=== PATIENT | female | born 1980 | race Caucasian/White ===

== ENCOUNTER → 2022-07-10 13:11 | Outpatient (CLI) | payer OTHER, SELFPAY ==
--- NOTE | 2022-07-10 13:25 | XR_ITS ---
FINAL REPORT CLINICAL HISTORY: PAIN-- FINDINGS: LEFT FOOT Three weight-bearing views of the left foot demonstrate no acute fracture or dislocation. The visualized joint spaces are normally aligned. The soft tissues are unremarkable. IMPRESSION: No acute bony abnormality. Reviewed, Interpreted and Dictated by Thomas Kumar MD Transcribed by Brittny Gauthier Authenticated and [facility]
--- NOTE | 2022-07-10 13:25 | XR_ITS ---
FINAL REPORT CLINICAL HISTORY: PAIN FINDINGS: RIGHT FOOT Three seated/simulated weight-bearing views of the right foot demonstrate no acute fracture or dislocation. The visualized joint spaces are intact. The soft tissues are unremarkable. IMPRESSION: No acute bony abnormality. Reviewed, Interpreted and Dictated by Thomas Kumar MD Transcribed by Brittny Gauthier Authenticated and [facility]
== END ==
PROVIDERS: PCP Family Medicine; Visit Provider Podiatrist
DX: M79.672 Pain in left foot (principal); M79.671 Pain in right foot
CPT/HCPCS: 73630

== ENCOUNTER → 2022-08-03 09:46 | Outpatient (CLI) | payer OTHER, SELFPAY ==
--- NOTE | 2022-08-03 09:53 | ECG_ITS ---
APPROVED REPORT Exam: Resting ECG HR:107 bpm ECG Measurements Heart Rate 107 AXES NE 126 P 83 QRSd 74 QRS 86 QT 309 T 52 QTc 372 Conclusion SINUS TACHYCARDIA POSSIBLE RIGHT ATRIAL ENLARGEMENT [0.25mV P-WAVE] NONSPECIFIC ST & T-WAVE ABNORMALITY ABNORMAL RHYTHM ECG UNCONFIRMED REPORT Electronically signed by : Dionisio Palumbo MD 08/03/2022 19:23:51
--- NOTE | 2022-08-03 10:04 | XR_ITS ---
FINAL REPORT CLINICAL HISTORY: pre op, SINUS DRAINAGE FINDINGS: Two views of the chest were obtained. The heart size and pulmonary vascularity are within normal limits. The mediastinum is normal. No acute pulmonary abnormality is identified. There is no pneumothorax. The bony thorax is intact. IMPRESSION: No active cardiopulmonary disease. Reviewed, Interpreted and Dictated by Hardik Javed III, MD Transcribed by Sidra Patricia Authenticated and [facility]
[2022-08-03 10:38] LABS: Basophils # 0.1 K/mm3 (0-0.2); Basophils % 1.1 % (0.1-2.0); Eosinophils # 0.3 K/mm3 (0.0-0.4); Eosinophils % 2.5 % (0.1-12.0); Lymphocytes # 2.3 K/mm3 (0.7-4.5); Lymphocytes % 23.5 % (10-50); Mean Corpuscular HGB Conc 32.5 g/dL (31.8-35.4); Mean Corpuscular Hemoglobin 31.3 pg (27.0-31.2); Mean Corpuscular Volume 96.2 fl (81-99); Mean Platelet Volume 7.4 fl (7.4-10.4); Monocytes # 0.6 K/mm3 (0.1-1.0); Monocytes % 6.2 % (1.7-9.3); Neutrophils # 6.6 K/mm3 (1.8-7.8); Neutrophils % 66.7 % (37.0-80.0); Platelet Count 372 K/mm3 (142-424); Red Blood Count 4.47 M/mm3 (4.20-5.40); Red Cell Distribution Width 13.7 % (11.5-17.5); White Blood Count 9.9 K/mm3 (4.8-10.8)
[2022-08-03 11:12] LABS: Alanine Aminotransferase 21 U/L (12-78); Albumin Level 4.2 g/dl (3.5-5.0); Albumin/Globulin Ratio 1.6 (1.1-1.8); Alkaline Phosphatase 81 U/L (38-126); Anion Gap 15.1 mEq/L (5-15); Aspartate Amino Transferase 28 U/L (14-36); Bilirubin,Total 0.3 mg/dl (0.2-1.3); Blood Urea Nitrogen 12 mg/dl (7-17); Calcium 9.3 mg/dl (8.4-10.2); Carbon Dioxide 27 mmol/L (22.0-30.0); Chloride 101 mmol/L (98-107); Estimated Glomerular Filt Rate 78 ml/min (>60); GFR (African American) 95 ML/MIN (>60); Globulin 2.7 g/dL (1.3-3.2); Glucose 94 mg/dl (74-100); Potassium 4.1 mmoL/L (3.5-5.1); Sodium 139 mmol/L (136-145); Total Protein,Serum 6.9 g/dl (6.3-8.2)
== END ==
PROVIDERS: PCP Family Medicine; Visit Provider Podiatrist
DX: Z01.818 Encounter for other preprocedural examination (principal); M79.671 Pain in right foot
CPT/HCPCS: 36415; 71046; 80053; 85025; 93005

== ENCOUNTER → 2022-08-21 09:24 | Outpatient (CLI) | payer OTHER, SELFPAY | PROVIDERS: PCP Family Medicine; Visit Provider Podiatrist | DX: Z01.812 Encounter for preprocedural laboratory examination (principal); Z20.822 Contact with and (suspected) exposure to COVID-19 | CPT/HCPCS: C9803; U0003; U0005 ==

== ENCOUNTER 2022-08-23 06:04 | Day surgery (SDC) | payer OTHER, SELFPAY ==
[2022-08-21 10:33] VITALS: BMI 23.1
[2022-08-23] VITALS (12 sets, daily range): BP systolic 96–144; BP diastolic 43–76; PULSE 80–102; RESP 16–18; TEMP 36.5–43; O2SAT 95–100
[2022-08-23 07:00] LABS: Urine Pregnancy, HCG Qual. Negative (Negative)
--- NOTE | 2022-08-23 07:59 | XR_ITS ---
FINAL REPORT CLINICAL HISTORY: Post op bunion repair FINDINGS: RIGHT FOOT Three views of the right foot were obtained. A splint obscures most of the detail. There is no acute fracture or dislocation. There are postoperative changes in the region the head of the 1st metatarsal and the 1st proximal phalanx. The visualized joint spaces are normally aligned. The joint spaces are preserved. The soft tissues are unremarkable. IMPRESSION: Postoperative change as above. Reviewed, Interpreted and Dictated by Hardik Javed III, MD Transcribed by Marti Jhaveri Authenticated and . [facility]
--- NOTE | 2022-08-23 08:23 | EXP.ANES.CKL ---
[facility] Medical History Allergies History of gastroesophageal reflux (GERD) Rosacea Sinus headache Urinary tract infection Surgical History History of History of hand surgery Hx of tonsillectomy Family History Father Family history of heart disease Family history of skin cancer Grandmother Family history of breast cancer Grandmother Family history of breast cancer Social History Smoking Status: Never smoker alcohol intake: never substance use type: denies use current occupational status: unemployed Travel in the last 8 weeks: None [facility] Anesthesia Checklist Patient Identification Patient Identification: Arm Band Structural Data Admitted From: Home Planned Operative Procedure/s: Right 1st MPJ ORIF, Plantar Plate Repair Consent for Planned Operative Procedure(s) Verified: Yes Verified Documents: Surgical Consent and History and Physical NPO Status Verified Time NPO: 00:00 Additional verifications Anesthesia Reactions: No Hx Blood Transfusions: No Blood Transfusion Reaction: No Airway Assessment C-Spine Mobility Assessed: Yes TMJ Mobility Assessed: Yes Dentition: Good Dentition Neurological Assessment Level of Consciousness: Awake and Alert Anesthesia Plan Anesthesia Risk discussed: Yes Anesthesia Plan: Verified ASA Class: I Anesthesia Type: General w/block (Right Popliteal/Saphenous. Risks/benefits explained, pt verbalized understanding)
--- NOTE | 2022-08-23 09:43 | XR_ITS ---
FINAL REPORT CLINICAL HISTORY: BUNIONECTOMY,HAMMERTOE ORIF fluoro time .33 FINDINGS: FLUORO TIME PROCEDURE: Fluoroscopy in the operating room. Fluoroscopy time was provided by the radiology department for the clinical service. Two films were obtained. Fluoroscopy exposure time: 0.33 minutes IMPRESSION: See above Reviewed, Interpreted and Dictated by Hardik Javed III, MD Transcribed by Marti Jhaveri Authenticated and [facility]
--- NOTE | 2022-08-23 09:51 | SUR.OPER ---
0914-additional 1gm ancef administered per FLAKITO Maria, see record for details
--- NOTE | 2022-08-23 10:13 | EXP.ANES.I ---
[facility] Anesthesia Record Part I Anesthesia Record I Intake, IV Amount: 1,100 Estimated blood loss (mL): 10 Urine output (mL): 0 Blood Products used (#): none Blood Pressure: 96/43 SaO2: 97 Pulse Rate: 95 Respiratory Rate: 16 Temperature: 98.2 F Patient is:: Drowsy and Stable Stable to PACU at:: 10:10
--- NOTE | 2022-08-23 10:35 | EXP.OP.NOTE ---
Date of procedure: 08/23/22 Pre-op Diagnosis:: Right first MPJ subluxation Right plantar plate tear Sprain of collateral ligament great toe Traumatic bunion/acquired hallux valgus right foot CRPS Post-op Diagnosis:: Same Procedure performed:: Right 1st MPJ dislocation open treatment/repair (97168), MPJ capsulotomy (67163) with traumatic bunionectomy repair (silver with modified Friedman) Right plantar plate repair Right collateral ligament repair Soft tissue reconstruction angular toe deformity (97275) Open flexor tenotomy toe x2 (17852) Right foot synovectomy, flexor tenosynovectomy Application of graft Surgeon:: Edyta Dunbar DPM BAR MACHINE OPERATOR PRODUCTION:: Gavin Scanlon Anesthesia: GETA, regional (right popliteal nerve block) and local (0.25% marcaine plain-10cc) Estimated blood loss (mL): 10 Clinical Note:: Patient is a 42-year-old active female who had acute onset pain 04/17/2022.? She has had conservative care including RICE protocol, immobilization fracture boot, NWB with crutches/rolling knee scooter, oral steroids. She has also had modification of shoe gear, modification of activity, strapping, Darco/bunion sleeve, steroid injection and topical compounding nerve pain cream. After a long discussion with the patient in regards to the conservative versus surgical treatment for the 1st MPJ dislocation/subluxation with subsequent bunion and hammertoe deformity, the patient has elected to proceed with surgery because they have failed conservative treatment and continue to have pain and worsening symptoms affecting daily activities. The patient has been instructed on the planned procedure, all risk versus benefits of the procedure discussed.? These include but are not limited to: bleeding, infection, nerve and blood vessel damage, need for further surgery, recurrence of deformity, delay in healing of soft tissue or bone, failure of bones to heal, non-union, mal-union, failure of the implant, allergic reaction, foreign body reaction, prolonged edema, prolonged pain and recovery, permanent nerve symptoms, CRPS/RSD, DVT/PE and anesthetic complications. No guarantees were given. All questions fully answered. The patient verbalized understanding and agreed to proceed with surgery. Written consent obtained. Necessary labs, pre-op testing: CBC, CMP, CXR, EKG, covid. Medical clearance per PCP. Operative findings:: Right first MPJ subluxation. There was minimal arthritic changes to the first metatarsal head, no osteochondral defect. The first metatarsal was subluxed off the proximal phalanx. There was a partial tear noted at the intra sesamoidal ligament. There was a tear at the distal attachment of the medial collateral ligament. There was a tear of >75% of the plantar plate. The abductor hallucis was intact. The flexor tendon was intact with some synovitis and a small tear noted. Operative note:: On this date and time, the patient was deemed an appropriate surgical candidate. With informed consent signed, anesthesia performed regional popliteal nerve block. The patient was taken to the operating theater and positioned supine. General anesthesia was induced. Tourniquet was applied to the RIGHT mid-calf. The RIGHT lower extremity was prepped and draped in normal sterile fashion. IV Ancef 2 g given. Right first MPJ dislocation open treatment with MPJ capsulotomy and traumatic bunion repair: The tourniquet was inflated to 225 mmHg. Attention was directed to the plantar medial foot where a linear incision was mapped out over first metatarsophalangeal joint. Dissection was carried down in a layered fashion to the bone. Care was taken to preserve neurovascular structures. Saw was used to resect the dorsal medial eminence of the first metatarsal. A power rasp was used to smooth down the edges and there is no bony prominence. Area was flushed with copious amounts of normal saline. Soft tissue was evaluated, see operative findings. Right plantar plate repair, collateral ligament repair, soft ti
--- NOTE | 2022-08-23 10:40 | SUR.PHASEI ---
1036 called and gave detailed report to Quintin Valle RN 1040 transported via stretcher to post op. vital signs stable. denies pain. left in stable condition with Quintin Valle RN at bedside.
--- NOTE | 2022-08-23 10:56 | EXP.ANES.II ---
[facility] Anesthesia Record Part II Anesthesia Record Part II Discharge Time: 10:40 Destination: Surgical Day Care (OP Surgery) PACU nurse assessment reviewed?: Yes Patient Condition:: Good Anesthesia Complications:: None Swallowing reflex intact?: Yes Cyanosis?: No Blood Pressure: 123/76 Pulse Rate: 89 Temperature: 98.2 F Mental Status: Alert & Oriented Pain level:: 0 Nausea and/or vomitting:: None Intake, IV Amount: 0
== END 2022-08-23 11:16 | disposition home or self-care (01) ==
PROVIDERS: PCP Family Medicine; Visit Provider Podiatrist
PROC: (CPT 28645; principal; 2022-08-23 07:30)
DX: S93.142A Subluxation of metatarsophalangeal joint of left great toe, initial encounter (principal); G90.521 Complex regional pain syndrome I of right lower limb; S93.521A Sprain of metatarsophalangeal joint of right great toe, initial encounter; M21.611 Bunion of right foot; M20.11 Hallux valgus (acquired), right foot
CPT/HCPCS: 28645; 28292; 27695; 28230; 73620; 73630; 81025; 96374; C1762; J2405; Q4211

== ENCOUNTER → 2022-10-05 11:42 | Outpatient (CLI) | payer OTHER, SELFPAY ==
--- NOTE | 2022-10-05 11:45 | XR_ITS ---
FINAL REPORT CLINICAL HISTORY: right foot pain COMPARISON: 08/23/2022 FINDINGS: RIGHT FOOT An overlying cast has been removed since the prior exam. Three views of the right foot demonstrate no acute fracture or dislocation. The joint spaces are preserved. There is soft tissue swelling along the medial aspect of the 1st MTP joint. IMPRESSION: Swelling with no acute bony abnormality. Reviewed, Interpreted and Dictated by Thomas Kumar MD Transcribed by Marti Jhaveri Authenticated and [facility]
== END ==
PROVIDERS: PCP Family Medicine; Visit Provider Podiatrist
DX: M79.671 Pain in right foot (principal); S99.921S Unspecified injury of right foot, sequela
CPT/HCPCS: 73630

== ENCOUNTER → 2023-03-08 08:50 | Outpatient (CLI) | payer OTHER, SELFPAY ==
--- NOTE | 2023-03-08 08:58 | XR_ITS ---
FINAL REPORT CLINICAL HISTORY: post-op x 6 mos COMPARISON: 10/05/2022 FINDINGS: Right foot Three views were obtained. There is no acute fracture or dislocation. There are postoperative changes involving the medial head of the 1st metatarsal. Mild degenerative changes are present. No soft tissue abnormality is identified. IMPRESSION: Stable appearance of the right foot. Reviewed, Interpreted and Dictated by Hardik Javed III, MD Transcribed by Miladis Muñoz Authenticated and [facility]
== END ==
PROVIDERS: PCP Family Medicine; Visit Provider Podiatrist
DX: M79.671 Pain in right foot (principal); Z98.890 Other specified postprocedural states
CPT/HCPCS: 73630

== ENCOUNTER 2023-12-25 08:23 | Outpatient (CLI) | payer OTHER, SELFPAY ==
--- NOTE | 2023-12-25 08:33 | XR_ITS ---
FINAL REPORT CLINICAL HISTORY: Right foot pain. Surgery 2021..fall 2 weeks ago FINDINGS: RIGHT FOOT Three views demonstrate no acute fracture or dislocation. There are mild degenerative changes of the great toe. Postoperative changes are seen at the first metatarsal head. No acute soft tissue abnormality is seen. IMPRESSION: No acute bony abnormality Reviewed, Interpreted and Dictated by Hardik Javed III, MD Transcribed by Sidra Patricia Authenticated and [facility]
== END 2023-12-25 23:59 ==
LOC: RAD 08:26
PROVIDERS: PCP Family Medicine; Visit Provider Podiatrist
DX: M79.671 Pain in right foot (principal)
CPT/HCPCS: 73630

== ENCOUNTER 2024-05-15 08:58 | Outpatient (CLI) | payer OTHER, SELFPAY ==
--- NOTE | 2024-05-15 09:03 | XR_ITS ---
FINAL REPORT CLINICAL HISTORY: foot pain COMPARISON: 12/25/2023 FINDINGS: RIGHT FOOT 3 views of the right foot were obtained. There is no acute fracture or dislocation. There is mild degenerative change at the first MTP joint. Soft tissues are unremarkable. IMPRESSION: Mild degenerative change without acute bony abnormality. Reviewed, Interpreted and Dictated by Rosanna Kauffman MD Transcribed by Sandie Montes Authenticated and [facility]
== END 2024-05-15 23:59 | disposition home or self-care (01) ==
LOC: RAD 09:00
PROVIDERS: PCP Family Medicine; Visit Provider Nurse Practitioner
DX: M79.671 Pain in right foot (principal); M77.41 Metatarsalgia, right foot; S99.921S Unspecified injury of right foot, sequela
CPT/HCPCS: 73630

== ENCOUNTER 2024-06-05 15:12 | Outpatient (CLI) | payer BC, SELFPAY ==
--- NOTE | 2024-06-05 15:20 | XR_ITS ---
FINAL REPORT CLINICAL HISTORY: foot pain f/u fracture COMPARISON: 05/15/2024 FINDINGS: AP, oblique and lateral views of the right foot were obtained. There is mild multi joint degenerative disease, most pronounced at the 1st MTP joint which is unchanged from prior exam. There is no acute fracture or dislocation. The joint spaces are preserved. Soft tissues are normal. IMPRESSION: No acute osseous abnormality of the right foot. Reviewed, Interpreted and Dictated by Amanda Live MD Transcribed by Anny Araujo Authenticated and [facility]
== END 2024-06-05 23:59 | disposition home or self-care (01) ==
LOC: RAD 15:14
PROVIDERS: PCP Family Medicine; Visit Provider Nurse Practitioner
DX: M79.671 Pain in right foot (principal)
CPT/HCPCS: 73630

== ENCOUNTER 2024-06-20 15:48 | Outpatient (CLI) | payer BC, SELFPAY ==
--- NOTE | 2024-06-20 15:49 | MR_ITS ---
PROCEDURE INFORMATION: Exam: MR Right Lower Extremity Other Than Joint Without and With Contrast; Foot Exam date and time: 06/20/2024 4:00 PM Age: 43 years old Clinical indication: Pain; Foot; Right; Additional info: Non-healing stress fracture TECHNIQUE: Imaging protocol: Magnetic resonance imaging of the right lower extremity without and with contrast. Exam focused on the foot. Contrast material: PROHANCE; Contrast volume: 13 ml; Contrast route: IV; COMPARISON: 1.5T MR FOOT RIGHT WO 06/16/2022 7:43 PM FINDINGS: Bones/joints: Unremarkable. No bone abnormalities. Articular cartilage is normal. No joint effusion. LIGAMENTS: Lisfranc ligament: Unremarkable. No evidence of tear. TENDONS: Flexor tendons of foot: Unremarkable. No evidence of tear. Tibialis posterior tendon: Unremarkable as visualized. Peroneal tendons: Unremarkable as visualized. Extensor tendons of foot: Unremarkable. No evidence of tear. Tibialis anterior tendon: Unremarkable as visualized. Tarsal canal (Sinus tarsi): Unremarkable. Tarsal tunnel: Unremarkable. Soft tissues: Unremarkable. Plantar fascia: Unremarkable as visualized. IMPRESSION: Unremarkable MR foot.
[2024-06-20] MEDS: GADOTERIDOL INJ 20ML SYRINGE 13 ML IV (16:40)
[2024-06-20] MEDS: SODIUM CHLORIDE 0.9% 10ML SYR (RAD ONLY) 10 ML IV (16:40)
== END 2024-06-20 23:59 | disposition home or self-care (01) ==
LOC: RAD 15:49
PROVIDERS: PCP Family Medicine; Visit Provider Podiatrist
DX: M79.671 Pain in right foot (principal); M84.374G Stress fracture, right foot, subsequent encounter for fracture with delayed healing
CPT/HCPCS: 73720; A9576

== ENCOUNTER 2024-07-01 10:51 | Outpatient (CLI) | payer BC, SELFPAY ==
[2024-07-01 11:21] LABS: Basophils # 0.1 K/mm3 (0-0.2); Basophils % 0.5 % (0.1-2.0); Eosinophils # 0.1 K/mm3 (0.0-0.4); Eosinophils % 0.9 % (0.1-12.0); Hematocrit 43.5 % (37.0-47.0); Hemoglobin 13.9 g/dL (12.2-16.2); Lymphocytes % 19.1 % (10-50); Mean Corpuscular HGB Conc 31.9 g/dL (31.8-35.4); Mean Corpuscular Hemoglobin 31.2 pg (27.0-31.2); Mean Corpuscular Volume 97.8 fl (81-99); Mean Platelet Volume 7.7 fl (7.4-10.4); Monocytes # 0.6 K/mm3 (0.1-1.0); Monocytes % 5.8 % (1.7-9.3); Neutrophils # 7.8 K/mm3 (1.8-7.8); Neutrophils % 73.7 % (37.0-80.0); Platelet Count 289 K/mm3 (142-424); Red Blood Count 4.45 M/mm3 (4.20-5.40); Red Cell Distribution Width 13.6 % (11.5-17.5); White Blood Count 10.6 K/mm3 (4.8-10.8)
[2024-07-01 12:11] LABS: Alanine Aminotransferase 18 U/L (12-78); Albumin Level 4.1 g/dl (3.5-5.0); Albumin/Globulin Ratio 1.4 (1.1-1.8); Alkaline Phosphatase 74 U/L (38-126); Anion Gap 9.1 mEq/L (5-15); Aspartate Amino Transferase 23 U/L (14-36); Bilirubin,Total 0.4 mg/dl (0.2-1.3); Blood Urea Nitrogen 8 mg/dl (7-17); Calcium 10.1 mg/dl (8.4-10.2); Carbon Dioxide 27 mmol/L (22.0-30.0); Chloride 106 mmol/L (98-107); Estimated Glomerular Filt Rate 91 ml/min (>60); GFR (African American) 110 ML/MIN (>60); Globulin 2.9 g/dL (1.3-3.2); Glucose 107 mg/dl (74-100); Potassium 4.1 mmoL/L (3.5-5.1); Sodium 138 mmol/L (136-145); Uric Acid 3.1 mg/dl (2.5-6.2)
[2024-07-01 12:17] LABS: C-Reactive Protein 0.5 mg/L (0-4)
[2024-07-01 12:42] LABS: Thyroid Stimulating Hormone 2.28 uIU/mL (0.465-4.68)
[2024-07-01 12:45] LABS: Activated Partial Thrombo Time 27.4 seconds (22.8-30.6); Fibrinogen 250 mg/dL (229.9-363.5); INR 0.98 (0.9-1.1)
[2024-07-01 13:04] LABS: Erythrocyte Sedimentation Rate 5 mm/hr (0-20)
[2024-07-01 13:18] LABS: Vitamin B12 418 pg/mL (239-931)
[2024-07-02 15:11] LABS: Antinuclear Antibodies, IFA Negative (.); RA Latex Turbid. <10.0 IU/mL (<14.0)
[2024-07-13 06:43] LABS: 1,25 Dihydroxy Vitamin D 79 pg/mL (.); 1,25-Dihydroxy, Vitamin D-2 <10 pg/mL (.); 1,25-Dihydroxy, Vitamin D-3 79 pg/mL (.)
== END 2024-07-01 23:59 | disposition home or self-care (01) ==
LOC: LAB 10:52
PROVIDERS: PCP Family Medicine; Visit Provider Podiatrist
DX: Z01.818 Encounter for other preprocedural examination (principal); S92.511A Displaced fracture of proximal phalanx of right lesser toe(s), initial encounter for closed fracture
CPT/HCPCS: 36415; 80050; 80053; 81241; 82607; 82652; 82746; 84443; 84550; 85025; 85384; 85610; 85651; 85730; 86038; 86140; 86431

== ENCOUNTER 2024-07-03 12:30 | Outpatient (CLI) | payer BC, SELFPAY ==
--- NOTE | 2024-07-03 12:40 | ECG_ITS ---
APPROVED REPORT Exam: Resting ECG HR:80 bpm ECG Measurements Heart Rate 80 AXES MI 125 P 70 QRSd 86 QRS 56 QT 367 T 59 QTc 402 Conclusion SINUS RHYTHM NORMAL ECG UNCONFIRMED REPORT Electronically signed by : Dionisio Palumbo MD 07/04/2024 16:00:47
== END 2024-07-03 23:59 | disposition home or self-care (01) ==
LOC: RT 12:30
PROVIDERS: PCP Family Medicine; Visit Provider Podiatrist
DX: Z01.818 Encounter for other preprocedural examination (principal)
CPT/HCPCS: 93005

== ENCOUNTER 2024-07-31 09:03 | Outpatient (CLI) | payer BC, SELFPAY ==
--- NOTE | 2024-07-31 09:16 | XR_ITS ---
FINAL REPORT TECHNIQUE: Bone densitometry calculations of the lumbar spine and left hip were obtained. CLINICAL HISTORY: Hx of stress fractures FINDINGS: Using L1-4, the bone mineral density of the spine is 0.891 g/cm2, corresponding to T-score of -1.4. Using the left hip, the bone mineral density of the femoral neck is 0.691 g/cm2, corresponding to a T-score of -2.1. Using the right hip, the bone mineral density of the femoral neck is 0.714 g/cm2, corresponding to a T-score of -1.9. NOTE: T-score: Standard deviation compared with peak bone mass of young adult mean. *Following the recommendations of the International Society of Bone densitometry, classification of hip BMD is based on the lower of two T-scores; total hip or femoral neck. IMPRESSION: Diminished bone mineral density of the lumbar spine and left hip consistent with low bone density. FRAX data reports 6% risk for major osteoporotic fracture and 0.8% for hip fracture. Reviewed, Interpreted and Dictated by Hardik Javed III, MD Transcribed by Miladis Muñoz Authenticated and [facility]
== END 2024-07-31 23:59 | disposition home or self-care (01) ==
LOC: RAD 09:04
PROVIDERS: PCP Family Medicine; Visit Provider Podiatrist
DX: G90.521 Complex regional pain syndrome I of right lower limb (principal); M84.374K Stress fracture, right foot, subsequent encounter for fracture with nonunion
CPT/HCPCS: 77080

== ENCOUNTER 2024-07-31 09:10 | Outpatient (CLI) | payer BC, SELFPAY ==
[2024-07-31 10:18] LABS: Urine Pregnancy, HCG Qual. Negative (Negative)
== END 2024-07-31 23:59 | disposition home or self-care (01) ==
LOC: PREOP 09:11
PROVIDERS: PCP Family Medicine; Visit Provider Podiatrist
DX: Z01.818 Encounter for other preprocedural examination (principal); M20.5X1 Other deformities of toe(s) (acquired), right foot
CPT/HCPCS: 81025

== ENCOUNTER 2024-08-06 08:26 | Day surgery (SDC) | payer BC, SELFPAY ==
[2024-07-31 10:05] VITALS: BMI 23.8
[2024-08-06] VITALS (10 sets, daily range): BP systolic 103–184; BP diastolic 46–78; PULSE 85–118; RESP 15–18; TEMP 36.3–36.4; O2SAT 95–100
[2024-08-06] MEDS: LACTATED RINGERS 1000ML 1,000 ML 25 ML IV (09:06)
--- NOTE | 2024-08-06 09:34 | P.PNANES_ITS ---
[facility] Disclaimer: The information contained in this section may have been updated after the patient was seen, as this information can be updated by other users. Medical History Factor 5 Leiden mutation, heterozygous Rosacea Urinary tract infection Sinus headache History of gastroesophageal reflux (GERD) Allergies Surgical History History of foot surgery History of hand surgery Hx of tonsillectomy History of Family History Father Family history of heart disease Family history of skin cancer Grandmother Family history of breast cancer Grandmother Family history of breast cancer Social History Smoking Status: Never smoker alcohol intake: never substance use type: denies use current occupational status: unemployed Travel in the last 8 weeks: Inside the [facility] Anesthesia Checklist Patient Identification Patient Identification: Arm Band, Family and Verbal (Name & ) Structural Data Admitted From: Home Planned Operative Procedure/s: RT. 4th/5th metatrsal ORIF, 1st metatarsal exostomy; autograft bone harvest Consent for Planned Operative Procedure(s) Verified: Yes Verified Documents: Surgical Consent and History and Physical NPO Status Verified Time NPO: 19:00 Chart Verification Results Verified: CBC, BMP, ECG, Chest Xray and HCG Additional verifications Patient : No Anesthesia Reactions: No Hx Blood Transfusions: No Blood Transfusion Reaction: No Cardiovascular Assessment Heart Sounds: S1 & S2 Pulse Rhythm: Irregular Peripheral Edema: No Airway Assessment Mallampati Score:: Class II C-Spine Mobility Assessed: Yes (FROM demonstrated) TMJ Mobility Assessed: Yes Dentition: Good Dentition (Nothing loose per pt.) Neurological Assessment Level of Consciousness: Awake, Alert, Appropriate and Follows Commands Hx Seizures: No Numbness or tingling in extremities: Yes (RT. LE) Anesthesia Plan Anesthesia Risk discussed: Yes Anesthesia Plan: Verified ASA Class: II Anesthesia Type: General w/block
[2024-08-06] MEDS: CEFAZOLIN SODIUM 2 GM in 0.9 % SODIUM CHLORIDE 100 ML IV (11:17)
--- NOTE | 2024-08-06 13:02 | XR_ITS ---
FINAL REPORT CLINICAL HISTORY: Post op 4th met fx COMPARISON: 06/06/2024 FINDINGS: RIGHT FOOT 3 views of the right foot were obtained. There is no acute fracture or dislocation. In the interval since the prior exam side plates and screws have been placed bridging osteotomies of the proximal fourth and fifth metatarsals. Visualized joint spaces are normally aligned. Soft tissues are unremarkable. IMPRESSION: Interval side plates and screws have been placed bridging osteotomies of the proximal fourth and fifth metatarsals. Reviewed, Interpreted and Dictated by Thomas Kumar MD Transcribed by Seble Reyna Authenticated and [facility]
--- NOTE | 2024-08-06 13:17 | XR_ITS ---
FINAL REPORT CLINICAL HISTORY: ORIF RT FOOT in OR 0.5 min 0.00 mGy/min 0.95 mGy FINDINGS: FLUOROSCOPY LESS THAN 1 HOUR HISTORY: Fluoroscopy guidance. Fluoroscopic guidance was provided for right foot ORIF. 2 spot films were obtained. A total of 0.5 minutes of fluoroscopy time were used. Total DAP: 0.95 mGy IMPRESSION: As above. Reviewed, Interpreted and Dictated by Thomas Kumar MD Transcribed by Sandie Montes Authenticated and [facility]
--- NOTE | 2024-08-06 13:44 | P.PNANES_ITS ---
[facility] Anesthesia Record Part I Anesthesia Record I Intake, IV Amount: 900 Hydration: Adequate Estimated blood loss (mL): 10 Urine output (mL): 0 Blood Products used (#): none Blood Pressure: 142/78 SaO2: 95 Pulse Rate: 118 Airway Patency: Patent Respiratory Rate: 16 Temperature: 97.4 F Patient is:: Awake (Talking) and Stable Stable to PACU at:: 13:39
--- NOTE | 2024-08-06 14:09 | P.OP_ITS ---
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 Of note patient has a history of injury is not well-visualized on imaging. Patient also has a history of free bleeding and soft tissue/bone that does not heal in the normal time . X-rays and MRI reviewed/discussed with the patient. Conservative treatment has included: Mod ification of activity, modification of shoe gear, immobilization fracture boot, ice, elevation, NSAIDs, steroids, cortisone injection, offloading/padding, home stretching, topical nerve cream with little to no improvement. Patient continues to have pain worse with prolonged activity and later in the day. Patient does not smoke and is not DM. Discussed workup for bleeding/clotting disorder and autoimmune. Also recommend DEXA scan for hx stress fractures. She will need to follow-up with her PCP. We discussed surgery including exostectomy of the first dorsal medial prominence, evaluation of the fourth and fifth metatarsal and possible ORIF with bone grafting if warranted. Discussed increased risk of wound healing, scarring and infection when operating through same incision as previous surgery. Discussed possibility/likelihood of hyper vascular response and discoloration to the surgical site due to history of this. All risks and benefits were discussed including but not limited to: damage to blood vessels and nerves, bleeding, infection, wound complications, delayed, mal or non-union of bone, post-traumatic arthritis, need for further surgery, implant failure, need for removal of implant, prolonged or permanent swelling of the extremity, prolonged or permanent pain or deformity, CRPS/RSD, DVT/PE, and anesthetic complications including . No guarantees were given. All question s fully answered. The patient verbalized understanding and agreed to proceed with surgery. Consent was obtained. Necessary labs and pre-op testing reviewed. Discussed increased risk of DVT/PE due to new diagnosis of Factor V Leiden mutation. Will plan to start Xarelto postoperatively. Has fracture boot and DME at home. Given Rx for oxycodone, Zofran, Toradol, gabapentin. Operative findings:: Right first MTPJ previous scar well-healed. The dorsal medial cutaneous nerve was entrapped in some scar tissue. There was palpable FiberWire from old samrt rgery noted to the dorsal medial aspect of the joint. There was some dorsal spurring noted on the first metatarsal head dorsally as well as a small medial dorsal eminence. Early mild cartilage wear today metatarsal head inferiorly. No signs of infection to the prior surgical site. The fourth metatarsal had a little hypertrophy and irregularity noted on the lateral aspect of the shaft more proximal. This correlated clinically of the area of pain and on MRI where there is some edema. The fifth metatarsal just distal to the base had some irregularity. Both of these areas were indicative of stress fractures nonunion as there was hypertrophy at the cortex but the bone was soft at the fracture site. The soft tissue around the fourth and fifth metatarsal fracture sites also had synovitis and inflammatory changes consistent with trauma. No evidence of third or fourth interspace identified through this incision. Operative note:: On this date and time patient was deemed an appropriate surgical candidate. A pre-operative regional nerve block was given by anesthesia. With informed consent signed, the patient was taken to the operating theater. The patient was positioned supine. General anesthesia was induced. Tourniquet was applied to the right thigh @250mmHg. The right lower extremity was prepped and draped in normal sterile fashion. Right calcaneal autograft bone harvest: Attention was directed to the lateral aspect of the foot where a stab incision was made over the lateral Calc. Full- thickness dissection down to level of the bone. Bone graft harvester utilized to obtain 3 cc of calcaneal bone which was saved and later used in the fracture nonunion site. Wound flushed. Nylon used to close skin. Right first MTPJ cheilectomy: Attention was then directed to the first MTPJ where previous surgical scar was well-healed. New incision made just superior to this. Full-thickness dissection. The nerve was entrapped in scar tissue. The scar was excised and the fibrotic scar tissue was debrided sharply excisionally with a 15 blade and forceps. A piece of this tissue was sent for pathology. FiberWire suture was also noted at the previous soft tissue repair site medially from prior surgery. The FiberWire suture was removed. Next attention was directed to the joint where dorsal and medial spurring was noted on the metatarsal head. [place] and power rasp were used to smooth down the bony exostosis. Wound flushed with saline. Next medial capsulotomy and capsulorrhaphy was performed and soft tissue was repaired with 2-0 Vicryl reapproximating the first MTPJ. Range of motion was smooth with no crepitus noted. A piece of amniotic graft was cut in half on the back table. Half of the graft was inserted over the soft tissue prior to skin closure to prevent scar tissue adhesions due to significant scarring and nerve entrapment previously. Deep and subcutaneous tissue was repaired with Vicryl and skin reapproximated with nylon. Right 4-5th Metatarsal ORIF: Attention was directed to the dorsal foot where intraoperative fluoroscopy was used to map out a linear incision between the fourth and fifth metatarsals on multiple x-ray views. Full-thickness dissection performed with care taken to maintain surgical hemostasis and safely retract neurovascular structures. There was no acute fracture noted. However there was bony hypertrophy and irregularity noted to the lateral aspect of the fourth metatarsal shaft just proximal to the base and to the fifth metatarsal just distal to the base. [place] rongeur used to explore the area and the bone was soft at the suspected fracture site. This correlated on intraoperative fluoroscopy where MRI showed bone marrow edema. Next power saw was used to transect the bone at the nonunion site on both the fourth and fifth metatarsals. There was no malalignment of the nonunion site noted. Wound flushed with saline. The calcaneal autograft harvest bone was inserted into the nonunion site. Next a 5 hole plate was inserted over the fourth metatarsal and checked under intraoperative fluoroscopy. Position was appropriate and did not extend into the fourth fifth met base cuboid joint. In standard technique, in accordance with manufacture guidelines 2.0 mm locking screws were inserted proximal and distal to the fracture nonunion site. Intraoperative fluoroscopy was utilized to check the reduction and alignment of the plate. Adequate reduction and alignment was noted. At this point similar technique was used on the fifth metatarsal fracture to secure a 5 hole plate with 2.0 mm locking screws x 4. Final position of fracture and hardware was checked under intraoperative fluoroscopy and deemed to be appropriate and stable. Remaining graft was packed over the fracture site. A piece of amniotic graft was previously cut in half. The graft was then inserted over the plate to prevent adhesions and scar tissue. Vicryl used to reapproximate deep and subcutaneous tissue in a running fashion. Nylon used to reapproximate the skin. The tourniquet was deflated at 93 minutes and immediate hyperemic response was noted to the digits. Xeroform, dry sterile dressing was then applied followed by a short fracture boot. The patient was awoken from anesthesia and transferred to recovery with vital signs stable and neurovascular status intact. Patient appeared to tolerate procedure and anesthesia well without complication. Materials: Vilex 5 hole straight plate x2, 2.0mm locking screws x8, [facility] [place] graft x1 (4x4cm) Discharge/Plan: Patient is to maintain dressing clean dry and intact. Cryo cuff/polar pack applied behind the knee. Ice top of right foot. Elevate the extremity on two pillows. Non weight bearing to the RLE with RKS. Take Rx as previously directed. Obtain post op films, right foot. Follow up with Podiatry in one week as scheduled for incision/skin check. Tourniquet time (min): 97 Condition: stable Disposition: same day Specimens:: Right first MTPJ tissue path Right first MTPJ bone path Complications:: None
--- NOTE | 2024-08-06 14:59 | P.PNANES_ITS ---
[facility] Anesthesia Record Part II Anesthesia Record Part II Discharge Time: 14:04 Destination: Surgical Day Care (OP Surgery) PACU nurse assessment reviewed?: Yes Patient Condition:: Good Anesthesia Complications:: None Swallowing reflex intact?: Yes Airway Patency: Patent Cyanosis?: No Blood Pressure: 122/62 SaO2: 98 Respiratory Rate: 15 Pulse Rate: 100 Temperature: 97.4 F Mental Status: Alert & Oriented Pain level:: 0 Nausea and/or vomitting:: None Intake, IV Amount: 900 Hydration: Adequate
== END 2024-08-06 14:44 | disposition home or self-care (01) ==
PROVIDERS: PCP Family Medicine; Visit Provider Podiatrist
PROC: (CPT 28289; principal; 2024-08-06 10:00)
DX: M84.374K Stress fracture, right foot, subsequent encounter for fracture with nonunion (principal); M20.5X1 Other deformities of toe(s) (acquired), right foot
CPT/HCPCS: 28289; 28485 ×2; 73620; 73630; 96374; C1713; C1776; J0690; J1100; J1885; J2250; J2405; J3010; J7120

== ENCOUNTER 2024-09-11 09:10 | Outpatient (CLI) | payer BC, SELFPAY ==
--- NOTE | 2024-09-11 09:14 | XR_ITS ---
PROCEDURE INFORMATION: Exam: XR Right Foot Complete; Alignment Exam date and time: 09/11/2024 9:45 AM Age: 44 years old Clinical indication: Pain; Foot; Right; Additional info: Fracture TECHNIQUE: Imaging protocol: Radiologic exam of the right foot. Views: 3 or more views. COMPARISON: CR XR FOOT RT MIN 3V 08/06/2024 2:09 PM FINDINGS: Bones/joints: Redemonstration of internally fixed osteotomy defects involving the 4th and 5th metatarsals stabilized by cortical plates. Osseous structures remain in good alignment and apposition. Hardware is intact. Bone mineral interface is unremarkable. Remaining visualized osseous structures are unchanged and unremarkable. Soft tissues: Normal. IMPRESSION: Stable appearance of internally fixed osteotomy sites 4th and 5th metatarsals.
== END 2024-09-11 23:59 | disposition home or self-care (01) ==
LOC: RAD 09:11
PROVIDERS: PCP Family Medicine; Visit Provider Podiatrist
DX: M79.671 Pain in right foot (principal)
CPT/HCPCS: 73630

== ENCOUNTER 2024-09-25 11:01 | Outpatient (CLI) | payer BC, SELFPAY ==
--- NOTE | 2024-09-25 11:04 | XR_ITS ---
FINAL REPORT CLINICAL HISTORY: FOOT PAIN COMPARISON: 08/06/2024 FINDINGS: RIGHT FOOT: Three views of the right foot were obtained. There are postoperative changes of fusion with orthopedic plates and screws of the proximal and mid fourth and fifth metatarsals. There does appear to be mild callus at the surgical sites. There is no acute fracture or dislocation. The joint spaces are intact. There is no soft tissue abnormality. IMPRESSION: Postoperative changes of the fourth and fifth metatarsals as described, with mild callus formation. Authenticated and [facility]
== END 2024-09-25 23:59 | disposition home or self-care (01) ==
LOC: RAD 11:01
PROVIDERS: PCP Family Medicine; Visit Provider Podiatrist
DX: M79.671 Pain in right foot (principal)
CPT/HCPCS: 73630

== ENCOUNTER 2024-10-13 09:20 | Outpatient (CLI) | payer BC, SELFPAY ==
--- NOTE | 2024-10-13 09:23 | XR_ITS ---
PROCEDURE INFORMATION: Exam: XR Right Foot Complete; Alignment Exam date and time: 10/13/2024 9:23 AM Age: 44 years old Clinical indication: Pain; Foot; Right; Additional info: Foot pain TECHNIQUE: Imaging protocol: Radiologic exam of the right foot. Views: 3 or more views. AP Oblique Lateral COMPARISON: CR XR FOOT WT BEARING RT 3V 09/25/2024 11:20 AM FINDINGS: Bones/joints: Hardware plates and screws along the proximal metadiaphysis of the 4th and 5th metatarsals. This appears stable since 09/25/2024. Persistent bony defects identified within the proximal metadiaphysis of the 4th and 5th metatarsals with incomplete healing. Diffusely severely decreased bone density. Limited sensitivity to detect acute abnormalities. Mild to moderate generalized bony degenerative changes. Hallux valgus angulation of the first metatarsal-phalangeal articulation is demonstrated. Bony structures appear otherwise unremarkable. Soft tissues: Mild soft tissue edema. The soft tissues appear otherwise unremarkable. IMPRESSION: 1. Stable postsurgical changes involving the proximal 4th and 5th metatarsals with incomplete healing of the fractures. 2. Chronic bony changes.
== END 2024-10-13 23:59 | disposition home or self-care (01) ==
LOC: RAD 09:21
PROVIDERS: PCP Family Medicine; Visit Provider Podiatrist
DX: M79.671 Pain in right foot (principal)
CPT/HCPCS: 73630

== ENCOUNTER 2024-11-03 10:20 | Outpatient (CLI) | payer BC, SELFPAY ==
--- NOTE | 2024-11-03 10:23 | XR_ITS ---
FINAL REPORT CLINICAL HISTORY: Foot pain COMPARISON: 10/13/2024 FINDINGS: RIGHT FOOT Three views of the right foot were obtained. There are nondisplaced fractures of the fourth and fifth metatarsals post ORIF changes. The fracture lines are slight less distinct compatible with fracture healing. IMPRESSION: Mild partial interval healing of the fourth and fifth metatarsal fractures. Reviewed, Interpreted and Dictated by Rosanna Kauffman MD Transcribed by Christiana Vang Authenticated and [facility]
== END 2024-11-03 23:59 | disposition home or self-care (01) ==
LOC: RAD 10:21
PROVIDERS: PCP Family Medicine; Visit Provider Podiatrist
DX: M79.671 Pain in right foot (principal); M79.672 Pain in left foot
CPT/HCPCS: 73630

== ENCOUNTER 2024-12-08 10:22 | Outpatient (CLI) | payer BC, SELFPAY ==
--- NOTE | 2024-12-08 10:24 | XR_ITS ---
FINAL REPORT CLINICAL HISTORY: Postoperative SURGERY IN 2022 COMPARISON: 11/03/2024 FINDINGS: RIGHT FOOT 3 views of the right foot were obtained. There is no acute fracture or dislocation. There are side plates and screws present in the proximal fourth and fifth metatarsals, unchanged in appearance since the prior examination of 11/03/2024. Diffuse osteopenia is noted. Visualized joint spaces are normally aligned. Soft tissues are unremarkable. IMPRESSION: Postoperative changes, stable since the prior exam of 11/03/2024. Diffuse osteopenia is again noted. Reviewed, Interpreted and Dictated by Thomas Kumar MD Transcribed by Seble Reyna Authenticated and [facility]
== END 2024-12-08 23:59 | disposition home or self-care (01) ==
LOC: RAD 10:23
PROVIDERS: PCP Family Medicine; Visit Provider Podiatrist
DX: Z98.890 Other specified postprocedural states (principal)
CPT/HCPCS: 73630

== ENCOUNTER 2025-01-19 09:46 | Outpatient (CLI) | payer BC, SELFPAY ==
--- NOTE | 2025-01-19 09:48 | XR_ITS ---
FINAL REPORT CLINICAL HISTORY: Post-Op COMPARISON: 12/08/2024, 06/05/2024 FINDINGS: RIGHT FOOT 3 views of the right foot were obtained. There is no acute fracture or dislocation. Bones are osteopenic. There are cortical plates along the fourth and fifth metatarsals. Patient is status post bunionectomy. Visualized joint spaces are normally aligned. Soft tissues are unremarkable. IMPRESSION: Postoperative changes without acute findings. Reviewed, Interpreted and Dictated by Rosanna Kauffman MD Transcribed by Anny Araujo Authenticated and [facility]
== END 2025-01-19 23:59 | disposition home or self-care (01) ==
LOC: RAD 09:47
PROVIDERS: PCP Family Medicine; Visit Provider Podiatrist
DX: Z98.890 Other specified postprocedural states (principal); M96.89 Other intraoperative and postprocedural complications and disorders of the musculoskeletal system; M84.374K Stress fracture, right foot, subsequent encounter for fracture with nonunion
CPT/HCPCS: 73630

== ENCOUNTER 2025-03-23 09:39 | Outpatient (CLI) | payer BC, SELFPAY ==
--- NOTE | 2025-03-23 09:44 | XR_ITS ---
FINAL REPORT CLINICAL HISTORY: RT ORIF COMPARISON: 01/19/2025 FINDINGS: AP, oblique and lateral views of the right foot were obtained. Postoperative changes of ORIF of the 4th and 5th metatarsals remains present and are stable in appearance. The hardware is intact. Osteopenia is once again noted. There is no acute fracture or dislocation. Mild multijoint degenerative disease is present, stable. Soft tissues are unremarkable. IMPRESSION: Postoperative changes of ORIF of the 4th and 5th metatarsals remain stable, with intact hardware. Mild multijoint degenerative changes once again identified, also stable, without acute abnormality. Reviewed, Interpreted and Dictated by Amanda Live MD Transcribed by Seble Reyna Authenticated and . [facility]
== END 2025-03-23 23:59 | disposition home or self-care (01) ==
LOC: RAD 09:40
PROVIDERS: PCP Family Medicine; Visit Provider Podiatrist
DX: M19.071 Primary osteoarthritis, right ankle and foot (principal)
CPT/HCPCS: 73630